=== PATIENT | female | born 1985 | race Caucasian/White ===

== ENCOUNTER 2016-11-29 18:23 | Emergency (ER) | payer SELFPAY ==
[2016-11-29 18:41] VITALS: RESP 16
[2016-11-29 19:08] LABS: COLOR YELLOW; LEUKOCYTE ESTERASE,URINE NEGATIVE (NEGATIVE); NITRITE,URINE NEGATIVE (NEGATIVE)
[2016-11-29 19:10] LABS: BACTERIA TRACE /hpf (NONE SEEN)
[2016-11-29] MEDS ORDERED: HYDROmorphONE/DILAUDID 1 MG/ML SYR ONE (19:27)
[2016-11-29 19:35] LABS: % IMMATURE GRANULYOCYTES 0.2 % (0.0-1.1); ABSOLUTE IMMATURE GRANULOCYTES 0.01 10^3/uL (0.00-0.10); ADD DIFF? NO; ADD MORPH? NO; ADD SCAN? NO; ATYPICAL LYMPHOCYTE FLAG 0 (0-99); FRAGMENT RBC FLAG 0 (0-99); HEMATOCRIT 40.3 % (38.0-47.0); HEMOGLOBIN 13.7 g/dL (12.6-16.3); LEFT SHIFT FLG 0 (0-99); LIPEMIA HEMOLYSIS FLAG 90 (0-99); MEAN CELL HEMOGLOBIN 31.4 pg (27.9-34.1); MEAN CELL VOLUME 92.4 fL (81.5-99.8); MEAN PLATELET VOLUME 8.9 fL (8.7-11.7); PLATELET CLUMPS FLAG 0 (0-99); PLATELET COUNT 243 10^3/uL (150-400); RED BLOOD CELL COUNT 4.36 10^6/uL (4.18-5.33); RED CELL DISTRIBUTION WIDTH 12.2 % (11.5-15.2)
[2016-11-29] MEDS ORDERED: HYDROmorphONE/DILAUDID 1 MG/ML SYR IVP ONE (19:39)
[2016-11-29] MEDS ORDERED: KETOROLAC 30 MG/1 ML SDV IVP ONE (20:29)
--- NOTE | 2016-11-29 20:33 | EDPHY ---
H & P Time Seen by Provider: 11/29/16 18:51 HPI/ROS: HPI Menstrual cramping, heavy vaginal bleeding. 31-year-old female by private vehicle. This patient reports she has a history of polycystic ovarian disease. She reports that she had an ongoing menstruation for about 4 months. She reports that this resolved about 3 weeks ago. She reports about 2 days ago she developed a powerful menstrual cramps. This was followed by heavy vaginal bleeding starting today. She reports that these cramps her unusually severe and feel deep throughout her pelvis and lower abdomen. ROS: Constitutional: No fever, no chills. No weakness. Eyes: No discharge. No changes in vision. ENT: No sore throat. No nasal congestion or rhinorrhea. Respiratory: No cough. No shortness of breath. Cardiac: No chest pain, no palpitations. Gastrointestinal: As above, no vomiting, no diarrhea. Genitourinary: No hematuria. No dysuria or increased frequency with urination. As above. Musculoskeletal: No back pain. No neck pain. No myalgias or arthralgias. Skin: No rashes. Neurological: No headache. No focal weakness or altered sensation. Past medical history: As above. She currently does not have a OBGYN. She has a history of a seizure disorder for which she takes Topamax at a low dose. She also has a history of anxiety for which she takes Xanax. Social history: She is here by herself. She reports she is recently . Nonsmoker. Physical Exam: General Appearance: Alert, she appears uncomfortable. This patient is responding to questions appropriately and in full sentences. This patient appears well-hydrated and well-nourished. Eyes: Pupils equal and round no pallor or injection. No lid edema, erythema or injection. Respiratory: There are no retractions, lungs are clear to auscultation with good air movement bilaterally. Cardiovascular: Regular rate and rhythm. No murmur. Gastrointestinal: Abdomen is soft and with vague lower abdominal and suprapubic tenderness on palpation, no masses, bowel sounds normal. No focal tenderness at McBurney's point. No Zamorano sign. Neurological: Motor sensory function is grossly intact. Cranial nerves are normal. Gait is normal. Skin: Warm and dry, no rashes. Musculoskeletal: Neck is supple and nontender. No CVA tenderness on palpation bilaterally. Extremities are symmetrical. All joints range without pain or impingement. Psychiatric: No agitation. No depression. Database: EKG: Imaging: Procedures: Emergency department course: IV placed. She was placed on a monitor. She was started on IV normal saline with 1 L to be given over the next hour. She was initially given 0.25 mg of IV hydromorphone. Appropriate blood work obtained, patient will have a pelvic ultrasound shortly. 8:35 p.m., patient re-evaluated. Results of ultrasound and blood work discussed. She is still having some cramping pain. She has not had significant bleeding while in the emergency department. I discussed doing a pelvic exam. She declines this. She denies any history of renal dysfunction or contraindications to NSAIDs. She will be given 30 mg of IV Toradol. 9:15 p.m., patient re-evaluated. Reports her pain is better but is still concerned about her vaginal bleeding and pelvic pain. I again discussed doing a pelvic exam. She again declined this. I discussed having OBGYN evaluate her in the emergency department. She was in agreement with this plan. I spoke with Dr. Matute at 9:30 p.m.. She graciously agreed to come down and evaluate the patient in the emergency department. 9:45 p.m., Dr. Matute is currently at the patient's bedside. 10:15 p.m., discussed case with Dr. Matute. She feels the patient is safe for discharge and outpatient follow-up in our office next week. I am in agreement. 10:35 p.m., patient re-evaluated. She feels comfortable going home at this time and states that her pain is much improved. She is asking for narcotic pain medication to go home with. I explained I would send her home with a take- home pack of [place]. I discussed high-dose ibuprofen dosing as was recommended by Dr. Matute. Return to emergency department precautions were reviewed. She understands for follow-up with Dr. Matute. All of her questions were answered. She was discharged from the emergency department in good condition. Differential Diagnosis: The differential diagnosis on this patient includes but is not limited to dysfunctional uterine bleeding. Ectopic , miscarriage, uterine fibroids, coagulopathy unlikely. This represents a partial list of diagnoses considered. These considerations are based on history, physical exam, past history, reassessment and diagnostic testing. Smoking Status: Never smoked Constitutional: Initial Vital Signs Temperature (C) 36.4 C 11/29/16 18:38 Heart Rate 96 11/29/16 18:38 Respiratory Rate 16 11/29/16 18:38 Blood Pressure 108/80 11/29/16 18:38 O2 Sat (%) 100 11/29/16 18:38 O2 Delivery Mode Room Air Allergies/Adverse Reactions: Penicillins Allergy (Verified 12/16/15 15:53) tramadol Allergy (Verified 11/29/16 18:37) trazodone Allergy (Verified 12/16/15 15:53) Home Medications: Medication Instructions Recorded ALPRAZolam [Xanax] 1 mg PO TID 7 Days 12/16/15 Topiramate [Topamax] 25 mg PO BID 7 Days 12/16/15 Zolpidem Tartrate [Ambien 10 mg] 10 mg PO DAILY #5 tablet 12/16/15 Medical Decision Making - Data Points Laboratory Results: Laboratory Results 11/29/16 19:15 11/29/16 19:15 11/29/16 11/29/16 11/29/16 19:15 19:15 19:15 WBC 5.97 10^3/uL 10^3/uL (3.80-9.50) RBC 4.36 10^6/uL 10^6/uL (4.18-5.33) Hgb 13.7 g/dL g/dL (12.6-16.3) Hct 40.3 % % (38.0-47.0) MCV 92.4 fL fL (81.5-99.8) MCH 31.4 pg pg (27.9-34.1) MCHC 34.0 g/dL g/dL (32.4-36.7) RDW 12.2 % % (11.5-15.2) Plt Count 243 10^3/uL 10^3/uL (150-400) MPV 8.9 fL fL (8.7-11.7) Neut % (Auto) 46.9 % % (39.3-74.2) Lymph % (Auto) 38.2 % % (15.0-45.0) [place] % (Auto) 6.9 % % (4.5-13.0) Eos % (Auto) 6.0 % % (0.6-7.6) Baso % (Auto) 1.8 % H % (0.3-1.7) Nucleat RBC Rel Count 0.0 % % (0.0-0.2) Absolute Neuts (auto) 2.80 10^3/uL 10^3/uL (1.70-6.50) Absolute Lymphs (auto) 2.28 10^3/uL 10^3/uL (1.00-3.00) Absolute Monos (auto) 0.41 10^3/uL 10^3/uL (0.30-0.80) Absolute Eos (auto) 0.36 10^3/uL 10^3/uL (0.03-0.40) Absolute Basos (auto) 0.11 10^3/uL H 10^3/uL (0.02-0.10) Absolute Nucleated RBC 0.00 10^3/uL 10^3/uL (0-0.01) Immature Gran % 0.2 % % (0.0-1.1) Immature Gran # 0.01 10^3/uL 10^3/uL (0.00-0.10) Sodium 142 mEq/L mEq/L (134-144) Potassium 3.7 mEq/L mEq/L (3.5-5.2) Chloride 105 mEq/L mEq/L (97-110) Carbon Dioxide 22 mEq/l mEq/l (22-31) Anion Gap 15 mEq/L mEq/L (8-16) BUN 12 mg/dL mg/dL (7-23) Creatinine 0.7 mg/dL mg/dL (0.6-1.0) Estimated GFR > 60 Glucose 78 mg/dL mg/dL (70-100) Calcium 9.4 mg/dL mg/dL (8.5-10.4) Beta HCG, Qual NEGATIVE Urine Color Urine Appearance Urine pH Ur Specific [place] Urine Protein Urine Ketones Urine Blood Urine Nitrate Urine Bilirubin Urine Urobilinogen Ur Leukocyte Esterase Urine RBC Urine WBC Ur Epithelial Cells Urine Bacteria Ur Culture Indicated? Urine Glucose 11/29/16 18:50 WBC RBC Hgb Hct MCV MCH MCHC RDW Plt Count MPV Neut % (Auto) Lymph % (Auto) [place] % (Auto) Eos % (Auto) Baso % (Auto) Nucleat RBC Rel Count Absolute Neuts (auto) Absolute Lymphs (auto) Absolute Monos (auto) Absolute Eos (auto) Absolute Basos (auto) Absolute Nucleated RBC Immature Gran % Immature Gran # Sodium Potassium Chloride Carbon Dioxide Anion Gap BUN Creatinine Estimated GFR Glucose Calcium Beta HCG, Qual Urine Color YELLOW Urine Appearance CLEAR Urine pH 6.0 (5.0-7.5) Ur Specific [place] 1.005 (1.002-1.030) Urine Protein NEGATIVE (NEGATIVE) Urine Ketones NEGATIVE (NEGATIVE) Urine Blood 3+ H (NEGATIVE) Urine Nitrate NEGATIVE (NEGATIVE) Urine Bilirubin NEGATIVE (NEGATIVE) Urine Urobilinogen NEGATIVE EU EU (0.2-1.0) Ur Leukocyte Esterase NEGATIVE (NEGATIVE) Urine RBC 1-3 /hpf /hpf (0-3) Urine WBC 1-3 /hpf /hpf (0-3) Ur Epithelial Cells TRACE /lpf /lpf (NONE-1+) Urine Bacteria TRACE /hpf H /hpf (NONE SEEN) Ur Culture Indicated? NOT INDICATED (NI) Urine Glucose NEGATIVE (NEGATIVE) Medications Given: Discontinued Medications Hydromorphone HCl (Dilaudid) 0.25 mg IVP EDNOW ONE Stop: 11/29/16 19:40 Last Admin: 11/29/16 19:40 Dose: 0.25 mg Ketorolac Tromethamine (Toradol) 30 mg IVP EDNOW ONE Stop: 11/29/16 20:30 Last Admin: 11/29/16 20:57 Dose: 30 mg Departure - Departure Disposition: Home, Routine, Self-Care Clinical Impression: Dysfunctional uterine bleeding Condition: Good Instructions: Dysfunctional Uterine Bleeding (ED) Additional Instructions: Read and follow provided instructions. Follow-up with INDIRA Roblero, as discussed early this week for re-evaluation and further management. Ibuprofen dosin mg every 6 hours with meals for the next 3 days only. [place]/Percocet dosin-2 every 4-[address] not drive on this medication. Return to the emergency department for worsening pain, bleeding, fever or other serious concerns. Referrals: Wilma Marie MD [Medical Doctor] - As per Instructions
[2016-11-29 20:40] LABS: ANION GAP 15 mEq/L (8-16); CALCIUM 9.4 mg/dL (8.5-10.4); CARBON DIOXIDE 22 mEq/l (22-31); CHLORIDE 105 mEq/L (97-110); CREATININE 0.7 mg/dL (0.6-1.0); GLOMERULAR FILTRATION RATE > 60; GLUCOSE 78 mg/dL (70-100); POTASSIUM 3.7 mEq/L (3.5-5.2); SODIUM 142 mEq/L (134-144)
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
[2016-11-29 22:39] VITALS: BP 117/80; PULSE 73; TEMP 97.9; O2SAT 95
[2016-11-29] MEDS ORDERED: HYDROCOD/APAP 5/325 PREPACK#6 BTL TAKEHOME ONE ×2 (22:47)
== END 2016-11-29 22:49 | disposition home or self-care (01) ==
DX: N93.8 Other specified abnormal uterine and vaginal bleeding (principal)
CPT/HCPCS: 96374; J1170; J1885